=== PATIENT | female | born 1980 | race Caucasian/White ===

== ENCOUNTER 2016-11-08 13:52 | Emergency (ER) | payer MEDICAID ==
[2012-12-11 06:45] VITALS: BMI 16.9
== END 2016-11-08 15:56 | disposition home or self-care (01) ==
LOC: D.ER 13:52
DX: S20.211A Contusion of right front wall of thorax, initial encounter (principal); W10.9XXA Fall (on) (from) unspecified stairs and steps, initial encounter; Y93.89 Activity, other specified; Y92.019 Unspecified place in single-family (private) house as the place of occurrence of the external cause; S30.0XXA Contusion of lower back and pelvis, initial encounter; F32.9 Major depressive disorder, single episode, unspecified; I10 Essential (primary) hypertension

== ENCOUNTER 2016-11-14 10:57 | Emergency (ER) | payer MEDICAID ==
[2012-12-11 06:45] VITALS: BMI 16.9
== END 2016-11-14 15:30 | disposition home or self-care (01) ==
LOC: D.ER 10:57
DX: R07.81 Pleurodynia (principal); F17.200 Nicotine dependence, unspecified, uncomplicated; I10 Essential (primary) hypertension

== ENCOUNTER 2017-01-07 20:15 | Emergency (ER) | payer MEDICAID ==
[2012-12-11 06:45] VITALS: BMI 16.9
== END 2017-01-08 00:07 | disposition home or self-care (01) ==
LOC: D.ER 20:15
DX: G43.909 Migraine, unspecified, not intractable, without status migrainosus (principal); I10 Essential (primary) hypertension; F17.200 Nicotine dependence, unspecified, uncomplicated

== ENCOUNTER 2017-01-19 18:17 | Emergency (ER) | payer MEDICAID ==
[2012-12-11 06:45] VITALS: BMI 16.9
== END 2017-01-19 19:25 | disposition home or self-care (01) ==
LOC: D.ER 18:17
DX: R51 Headache (principal); E86.0 Dehydration; I10 Essential (primary) hypertension; F17.200 Nicotine dependence, unspecified, uncomplicated

== ENCOUNTER 2017-01-30 19:02 | Emergency (ER) | payer MEDICAID ==
[2012-12-11 06:45] VITALS: BMI 16.9
== END 2017-01-30 22:42 | disposition home or self-care (01) ==
LOC: D.ER 19:02
DX: R51 Headache (principal); I10 Essential (primary) hypertension; F32.9 Major depressive disorder, single episode, unspecified

== ENCOUNTER 2017-02-02 16:06 | Emergency (ER) | payer MEDICAID ==
[2012-12-11 06:45] VITALS: BMI 16.9
== END 2017-02-02 20:28 | disposition home or self-care (01) ==
LOC: D.ER 16:06
DX: G43.909 Migraine, unspecified, not intractable, without status migrainosus (principal); F31.89 Other bipolar disorder; F43.10 Post-traumatic stress disorder, unspecified; F17.200 Nicotine dependence, unspecified, uncomplicated

== ENCOUNTER 2017-02-10 14:42 | Emergency (ER) | payer MEDICAID ==
[2012-12-11 06:45] VITALS: BMI 16.9
== END 2017-02-10 17:56 | disposition home or self-care (01) ==
LOC: D.ER 14:42
DX: G43.909 Migraine, unspecified, not intractable, without status migrainosus (principal); F31.89 Other bipolar disorder; F43.10 Post-traumatic stress disorder, unspecified

== ENCOUNTER 2017-02-16 09:03 | Emergency (ER) | payer MEDICAID ==
[2012-12-11 06:45] VITALS: BMI 16.9
== END 2017-02-16 11:25 | disposition home or self-care (01) ==
LOC: D.ER 09:03
DX: R51 Headache (principal); G43.809 Other migraine, not intractable, without status migrainosus; G44.89 Other headache syndrome; E86.0 Dehydration; R11.2 Nausea with vomiting, unspecified

== ENCOUNTER 2017-03-01 12:44 | Emergency (ER) | payer MEDICAID ==
[2012-12-11 06:45] VITALS: BMI 16.9
== END 2017-03-01 16:45 | disposition home or self-care (01) ==
LOC: D.ER 12:44
DX: G43.909 Migraine, unspecified, not intractable, without status migrainosus (principal); F31.89 Other bipolar disorder; F43.10 Post-traumatic stress disorder, unspecified

== ENCOUNTER 2017-03-09 20:25 | Emergency (ER) | payer MEDICAID ==
[2012-12-11 06:45] VITALS: BMI 16.9
== END 2017-03-09 23:30 | disposition home or self-care (01) ==
LOC: D.ER 20:25
DX: G43.909 Migraine, unspecified, not intractable, without status migrainosus (principal); F17.200 Nicotine dependence, unspecified, uncomplicated

== ENCOUNTER 2019-06-04 20:01 | Emergency (ER) | payer MEDICAID ==
[~2019-06-04] VITALS: Ht 170.2 cm; Wt 54.5 kg
[2019-06-04 20:03] VITALS: Ht 170.2 cm; Wt 54.5 kg
[2019-06-04] MEDS ORDERED: CYCLOBENZAPRINE10 MG PO (21:31)
[2019-06-04] MEDS ORDERED: TALWIN NX1 TAB PO (21:31)
[2019-06-04 23:04] VITALS: BP 129/76
== END 2019-06-04 22:47 | disposition home or self-care (01) ==
LOC: D.ER 20:01
DX: S16.1XXA Strain of muscle, fascia and tendon at neck level, initial encounter (principal); V89.2XXA Person injured in unspecified motor-vehicle accident, traffic, initial encounter; S39.012A Strain of muscle, fascia and tendon of lower back, initial encounter; Z86.73 Personal history of transient ischemic attack (TIA), and cerebral infarction without residual deficits

== ENCOUNTER 2019-10-04 12:25 | Emergency (ER) | payer OTHER ==
[~2019-10-04] VITALS: Ht 170.2 cm; Wt 57.3 kg
[~2019-10-04 12:25] MED LIST: CYCLOBENZAPRINE10 MG PO; TALWIN NX1 TAB PO
[2019-10-04 12:39] VITALS: Ht 170.2 cm; Wt 57.3 kg
[2019-10-04 13:34] LABS: APPEARANCE CLOUDY (CLEAR); BILIRUBIN NEGATIVE (NEGATIVE); COLOR YELLOW (YELLOW); GLUCOSE NEGATIVE (NEGATIVE); KETONE NEGATIVE (NEGATIVE); NITRITE NEGATIVE (NEGATIVE); PROTEIN 2+ mg/dL (NEGATIVE); UROBILINOGEN NORMAL (NORMAL)
[2019-10-04 13:35] LABS: AMORPHOUS SEDIMENT <1+ /lpf (NONE SEEN); BACTERIA MANY /hpf (NEGATIVE); MUCUS >1+ /lpf (NONE SEEN)
[2019-10-04 13:36] LABS: GRANULAR CAST 0-5 /lpf (NONE SEEN)
[2019-10-04 13:53] LABS: BASOPHILS 0.2 % (0-2); EOSINOPHILS 2.2 % (0-7); HEMATOCRIT 36.4 % (36.0-48.0); HEMOGLOBIN 12.2 g/dL (12-16); IMMATURE GRANULOCYTES 0.4 % (0-5); LYMPHOCYTES 25.3 % (15-50); MCH 28.9 pg (26.0-34.0); MCHC 33.5 g/dL (31.0-37.0); MCV 86.3 fL (80.0-100.0); MEAN PLATELET VOLUME 9.2 fL (7.4-10.4); MONOCYTES 7.4 % (2-11); NEUTROPHILS 64.5 % (40-80); PLATELET COUNT 348 10x3/uL (130-400); RBC 4.22 10x6/uL (4.00-5.40); RDW 12.9 % (11.5-14.5); WBC 10.1 10x3/uL (4.8-10.8)
[2019-10-04 14:08] LABS: CALC OSMOLALITY 274 mosm/kg (275-300); CARBON DIOXIDE 29.2 mmol/L (21.0-32.0); CHLORIDE - SERUM 101 mmol/L (98-107); CREATININE - SERUM 0.8 mg/dL (0.6-1.3); GLUCOSE 90 mg/dL (74-106); POTASSIUM - SERUM 4.2 mmol/L (3.5-5.1); SODIUM 137 mmol/L (136-145); UREA NITROGEN 16 mg/dL (7-18); eGFR NON AFRICAN AMERICAN 85 mL/min (90-120)
[2019-10-04 14:14] LABS: ALBUMIN 3.7 g/dL (3.4-5.0); ALKALINE PHOSPHATASE 86 U/L (30-120); ALT (SGPT) 40 U/L (10-68); BILIRUBIN - TOTAL 0.33 mg/dL (0.2-1.3)
[2019-10-04] MEDS ORDERED: KEFLEX500 MG PO (15:45)
[2019-10-04] MEDS ORDERED: MACROBID100 MG PO (15:45)
[2019-10-04 16:03] VITALS: BP 125/79
== END 2019-10-04 16:26 | disposition home or self-care (01) ==
LOC: D.ER 12:25
PROVIDERS: Family Medicine
DX: N39.0 Urinary tract infection, site not specified (principal); N76.0 Acute vaginitis; Z86.73 Personal history of transient ischemic attack (TIA), and cerebral infarction without residual deficits